=== PATIENT | female | born 1960 | race Caucasian/White ===

== ENCOUNTER 2018-05-10 13:01 | Emergency (ER) | payer OTHER ==
[~2018-05-10] VITALS: Ht 160 cm; Wt 76.2 kg
--- NOTE | ~2018-05-10 | EKG ---
[address] [place] [address] ELECTROCARDIOGRAM REPORT Name: JAMIR ALEGRIA Room #: 170-2 ADM IN M.R.#: [id number] Admission: 05/10/18 Attend Phys: Skyler Vigil MD Discharge: Date of : 64 Report #: [id number] THIS REPORT FOR: //name// [facility] ED Test Date: 2018-05-10 Test Time: 13:06:39 Pat Name: JAMIR ALEGRIA Department: Room: 170 Gender: F Hand Outside Cutter: DALILA : 1960 Requested By: Nona Parker Order Number: [id number] MD: Leroy Hope Measurements Intervals Hines Rate: 82 P: 53 KS: 170 QRS: 47 QRSD: 103 T: 47 QT: 377 QTc: 441 Interpretive Statements Sinus rhythm No significant abnormality Compared to ECG 12/12/2006 15:41:11 No significant change Electronically Signed On 05-10-2018 19:01:54 CDT by Leroy Hope [email or web address] <ELECTRONICALLY SIGNED> By: Leroy Hope MD, [facility] 05/10/18 [id number] 05 Leroy Hope MD, FACC /EPI
[2018-05-10 13:26] VITALS: BP 187/110
[2018-05-10] MEDS ORDERED: PROPRANOLOL 1010 MG PO (13:31)
[2018-05-10] MEDS ORDERED: CYMBALTA20 MG PO (13:32)
[2018-05-10] MEDS ORDERED: EXEMESTANE25 MG PO (13:32)
[2018-05-10] MEDS ORDERED: TRULANCE3 MG PO (13:33)
[2018-05-10] MEDS ORDERED: ONDANSETRON HCL4 M2 PO (13:33)
[2018-05-10] MEDS ORDERED: PANTOPRAZOLE SO40 M1 PO (13:33)
[2018-05-10] MEDS ORDERED: CARAFATE 1 GM TA1 G1 PO (13:34)
[2018-05-10 13:55] LABS: ABSOLUTE NEUTROPHILS 5.9 thou/uL (1.4-8.2); BASOPHILS 0.7 % (0.0-2.0); HEMATOCRIT 44.8 % (37.0-47.0); HEMOGLOBIN 15.6 gm/dL (12.0-15.0); LYMPHOCYTES 12.8 % (24.0-44.0); MCH 31.3 pg (26.0-34.0); MCHC 34.8 g/dL (28.0-37.0); MCV 89.9 fL (80.0-100.0); PLATELET COUNT 270 thou/uL (150-400); POLYS 75.5 % (36.0-66.0); RBC 4.99 mil/uL (4.20-5.00); RDW 15.1 % (10.5-14.5); WBC 7.9 thou/uL (4.0-11.0)
[2018-05-10 14:05] LABS: ANION GAP 7 mmol/L (7-16); BUN 11 mg/dL (7-18); CALCIUM 9.3 mg/dL (8.5-10.1); CHLORIDE 107 mmol/L (98-107); CO2 27 mmol/L (21-32); CREATININE 0.7 mg/dL (0.6-1.0); GLUCOSE 99 mg/dL (74-106); SODIUM 141 mmol/L (136-145)
[2018-05-10 14:13] LABS: ALBUMIN 3.5 g/dL (3.4-5.0); LIPASE 113 U/L (73-393); SGOT 14 U/L (15-37); SGPT 20 U/L (30-65); TOTAL BILIRUBIN 0.2 mg/dL (<0.1-1.0); TOTAL PROTEIN 6.7 g/dL (6.4-8.2); TROPONIN-I <0.06 ng/mL (<0.06)
[2018-05-10 15:17] VITALS: BP 149/87
== END 2018-05-10 15:37 | disposition left against medical advice (07) ==
LOC: ER 13:01 → EROBS 15:16 → ER 15:16 → EROBS 15:37
PROVIDERS: Nurse Practitioner Family
DX: I16.0 Hypertensive urgency (principal); C50.919 Malignant neoplasm of unspecified site of unspecified female breast; M79.603 Pain in arm, unspecified; F17.210 Nicotine dependence, cigarettes, uncomplicated; Z88.1 Allergy status to other antibiotic agents